=== PATIENT | female | born 1990 | race Asian ===

== ENCOUNTER 2022-03-23 00:59 | Inpatient (IN) ==
[2022-03-23] MEDS ORDERED: Buffered Lidocaine 1% SYRIN 1 ml INTRADERM ONE (01:52)
[2022-03-23] MEDS ORDERED: Lactated Ringers 1000 ml BAG 1,000 ML IV ONE ×2 (01:52→03:21)
[2022-03-23] MEDS ORDERED: Penicillin G Potassium IV 5,000,000 UNITS in NS 0.9% 100 ml BAG 100 ML IVPB ONE (01:52)
[2022-03-23 02:10] LABS: ABS Eosinophils 0.1 10^3/ul (0-0.6); ABS Lymphocytes 1.4 10^3/ul (1.0-4.8); ABS Monocytes 0.6 10^3/ul (0-0.8); ABS Neutrophils 7.2 10^3/ul (1.5-7.7); Eosinophil % 0.8 %; Hematocrit 39 % (35-47); Hemoglobin 13.2 g/dL (12.0-16.0); Lymphocyte % 14.7 %; Mean Corpuscular HGB Conc 34 g/dL (31-36); Mean Corpuscular Hemoglobin 31 pg (27-31); Mean Corpuscular Volume 92 fL (80-97); Mean Platelet Volume 8.7 fL (7.4-10.4); Platelet Count 200 10^3/uL (150-450); Red Blood Count 4.25 10^6 /uL (3.70-4.87); Red Cell Distribution Width 15 % (10-15); White Blood Count 9.3 10^3/uL (3.5-10.8)
[2022-03-23 02:25] LABS: Urine Benzodiazepine Screen None Detected (None Detect); Urine Cannabinoids Screen None Detected (None Detect); Urine Opiates Screen None Detected (None Detect)
[2022-03-23] MEDS ORDERED: OBEPIDURAL (200 ML) 200 ML EPIDURAL ONE (02:35)
[2022-03-23] MEDS ORDERED: Lidocaine 1.5% EPI 1:200,000 30 ML SDV ONE (02:35)
[2022-03-23] MEDS ORDERED: Sodium Citrate/Citric Acid LIQ 15 ML UDC PO PRN (03:21)
[2022-03-23] MEDS ORDERED: Phenylephrine 40 mcg/mL 10mL (400mcg) SYRINGE IV PUSH PRN ×2 (03:21)
[2022-03-23] MEDS ORDERED: EPHEDrine (Pressors) 50 MG/ML VIAL IV PUSH PRN (03:21)
[2022-03-23] MEDS ORDERED: OBEPIDURAL (200 ML) 200 ML EPIDURAL SCH (04:00)
[2022-03-23] MEDS ORDERED: Lactated Ringers 1000 ml BAG 1,000 ML IV SCH ×2 (04:00→21:00)
[2022-03-23] MEDS ORDERED: Calcium Carb (TUMS) 500 mg CHEW TAB PO PRN (04:28)
[2022-03-23 04:34] LABS: Urine Appearance Clear; Urine Bilirubin Negative (Negative); Urine Blood 2+ (Negative); Urine Color Straw; Urine Glucose Negative (Negative); Urine Ketones Trace (Negative); Urine Nitrite Negative (Negative); Urine Protein Negative (Negative); Urine Specific Gravity 1.009 (1.002-1.030); Urine Urobilinogen Negative (Negative)
[2022-03-23 04:37] LABS: Urine Bacteria 1+ (Absent); Urine Red Blood Cell 3+(>10/hpf) (Absent); Urine White Blood Cell Trace(0-5/hpf) (Absent)
[2022-03-23] MEDS ORDERED: Calcium Carb (TUMS) 500 mg CHEW TAB ONE (04:44)
[2022-03-23] MEDS: Penicillin G Potassium IV 3,000,000 UNITS in NS 0.9% 100 ml BAG 100 ML IVPB SCH ×3 (07:05→15:22)
[2022-03-23] MEDS ORDERED: Oxytocin in LR 20 UNITS/1,000 ML BAG IVPB SCH ×2 (16:00→21:00)
[2022-03-23] MEDS: Ampicillin ADVAN 2 GM in NS 0.9% 100 ml BAG 100 ML IVPB SCH ×2 (16:46)
[2022-03-23] MEDS ORDERED: NS 0.9% IVPB SCH (17:00)
[2022-03-23] MEDS ORDERED: GENTAMICIN ADULT IVPB SCH (17:00)
[2022-03-23] MEDS ORDERED: Witch Hazel PAD JAR TOPICAL PRN (20:11)
[2022-03-23] MEDS ORDERED: Dibucaine 1% OINT 28.35 GM TUBE PR PRN (20:11)
[2022-03-23] MEDS ORDERED: Glycerin ADULT 2.4 gm SUPP PR PRN (20:11)
[2022-03-24] MEDS ORDERED: Lidocaine 1% VIAL 10 MG/ML VIAL ONE (01:05)
[2022-03-24 06:54] LABS: ABS Eosinophils 0.1 10^3/ul (0-0.6); ABS Monocytes 0.8 10^3/ul (0-0.8); ABS Neutrophils 12.5 10^3/ul (1.5-7.7); Eosinophil % 0.7 %; Hematocrit 28 % (35-47); Hemoglobin 9.5 g/dL (12.0-16.0); Lymphocyte % 7.2 %; Mean Corpuscular HGB Conc 34 g/dL (31-36); Mean Corpuscular Hemoglobin 31 pg (27-31); Mean Corpuscular Volume 92 fL (80-97); Mean Platelet Volume 8.6 fL (7.4-10.4); Platelet Count 155 10^3/uL (150-450); Red Blood Count 3.04 10^6 /uL (3.70-4.87); Red Cell Distribution Width 15 % (10-15); White Blood Count 14.4 10^3/uL (3.5-10.8)
[2022-03-25 07:50] VITALS: BP 105/63
== END 2022-03-25 16:51 | disposition home or self-care (01) | DRG 805 ==
LOC: MCHOBOUT 00:59 → MCHOB 01:55
PROVIDERS: ADMIT Advanced Practice Midwife; ATTEND Midwife